=== PATIENT | male | born 1980 | race Caucasian/White ===

== ENCOUNTER 2017-01-19 03:40 | Emergency (ER) | payer BC ==
--- NOTE | 2017-01-19 05:01 | ERNOTE ---
ENT HPI Date of Service: 01/19/17 Presenting Symptoms: dental pain - Immun/Allergies/Home Medications Immunizations: IMMUNIZATION HX Immunizations Up to Date Yes History of Influenza Vaccine Yes Hx Pneumococcal Vaccination No Allergies/Adverse Reactions: Allergies Allergy/AdvReac Type Severity Reaction Status Date / Time peanut Allergy Severe Anaphylaxis Verified 10/25/15 10:04 Home Medications: HOME MEDICATIONS Albuterol Sulfate [Proair Hfa] 2 puff IH TID PRN 01/19/17 [Last Taken Unknown] Fluticasone/Salmeterol [Advair 500-50 Diskus] 1 puff IH BID 01/19/17 [Last Taken Unknown] Ibuprofen [Motrin] 600 mg PO TID PRN #30 tab 01/19/17 [Last Taken Unknown] Montelukast Sodium [Singulair] 10 mg PO DAILY 01/19/17 [Last Taken Unknown] Penicillin V Potassium [Pen-Vee K] 500 mg PO QID #40 tab 01/19/17 [Last Taken Unknown] Sertraline HCl [Zoloft] 150 mg PO DAILY 01/19/17 [Last Taken Unknown] - History of Present Illness Narrative: THINKS HE HAS AN ABSCESSED TOOTH . Says last night he started having pain to left lower 1st molar . No hx. of trauma. No fever . No jaw swelling. He has seen a dentist in town at least twice since Sep for his teeth problem. Review of Systems - Review of Systems Constitutional: Present: See HPI EYE: Present: no symptoms reported ENT: Present: other - tooth ache Respiratory: Present: no symptoms reported Cardiology: Present: no symptoms reported Gastrointestinal/Abdominal: Present: no symptoms reported Genitourinary: Present: no symptoms reported Musculoskeletal: Present: no symptoms reported Skin: Present: no symptoms reported Neurological: Present: no symptoms reported Endocrine: Present: no symptoms reported Hematologic/Lymphatic: Present: no symptoms reported Psych: Present: no symptoms reported All Other Systems: All systems neg except as marked - Patient's Past Medical History Patient History - Medical: Anxiety, Depression, Other Patient History - Cardiac/Respiratory: Asthma Patient History - Cancer: No Hx of Cancer Patient History - Surgical Procedures: T & A - Social History Living Situations: home Abuse History: No History of abuse Psych History: No pertinent hx Smoking Status: Never smoker Alcohol Use: none Drug Use: none - Immunizations Immunizations Up to Date: Yes Hx Pneumococcal Vaccination: No History of Influenza Vaccine: Yes Physical Exam - Physical Exam General Appearance: Present: wd/wn, alert, no apparent distress Ears, Nose, Throat: Present: normal except - - he c/o tooth ache to left lower 1st molar which has a cavity but is not broken and there is no obvious local erythema or gum or jaw swelling ED Progress - Vital Signs Vital Signs: Vital Signs 01/19/17 04:05 Temperature 37.2 C Pulse Rate 76 Respiratory 16 Rate Blood Pressure 146/68 O2 Sat by Pulse 96 Oximetry - Progress/Reassessment Chief Complaint: Dental Problem Departure Clinical Impression: Tooth ache - Departure Disposition: Home Follow Up Needed Condition: Good Instructions: Dental Abscess, [id number] Additional Instructions: I do not see any gum or jaw swelling but since you have pain I will get you started on an antibiotic but you need to see a dentist for definitive care. you can call Dr. Montoya who you saw in Sep and the end of September or go to the walk in dental clinic that I gave you information about. Also avoid hot and cold foods and drink. Rinse vigorously with warm salt water for 5-10 mins every 2-3 hours. Try ambusol or oragel topically and dentist recommend using an anti-inflammatory medication/ If your meloxicam is not working you should try the ibuprofen or naproxen. Referrals: Troy Fish MD [Primary Care Provider] - Prescriptions: Ibuprofen [Motrin] 600 mg PO TID PRN #30 tab PRN Reason: Pain Penicillin V Potassium [Pen-Vee K] 500 mg PO QID #40 tab
[2017-01-19 05:54] VITALS: BP 129/76
== END 2017-01-19 05:40 | disposition home or self-care (01) ==
LOC: ER 03:40
DX: K08.89 Other specified disorders of teeth and supporting structures (principal); J45.909 Unspecified asthma, uncomplicated; F32.9 Major depressive disorder, single episode, unspecified; F41.9 Anxiety disorder, unspecified